=== PATIENT | male | born 1980 | race Caucasian/White ===

== ENCOUNTER 2020-02-17 21:13 | Emergency (ER) | payer MEDICAID ==
[~2020-02-17] VITALS: Ht 172.7 cm; Wt 100.7 kg
[2020-02-17 21:47] VITALS: BP 135/90
--- NOTE | 2020-02-17 22:14 | NUR ---
PT FELL OUT OF A TREE 2 DAYS AGO AND LANDED ON HIS LEFT WRIST. POSSIBLE FRACTURE TO SIDE OF HAND. SWELLING NOTED, UNABLE TO MOVE LITTLE FINGER AND RING FINGER. PALPABLE RADIAL PULSE. PT STATES HE HEARD A CRACK AT THE TIME IT HAPPENED AND IT MAKING A POPPING SOUND NOW WHEN HE MOVES IT. SKIN WARM AND DRY, CAP REFILL LESS THAN 3 SECS. PT PLACED IN BED, BED IN LOWEST POSITION AND SIDERAIL UP X 1. NKA HX - HIV
--- NOTE | 2020-02-17 22:16 | NUR ---
X-RAY AT BEDSIDE
[2020-02-17] MEDS ORDERED: HYDROcodone/APAP 5/325 MG 1 TAB TAB PO ONE (23:10)
--- NOTE | 2020-02-17 23:21 | NUR ---
CROWN [employer]ONER OPERATOR AT BEDSIDE, PLACED PT'S FRACTURED HAND IN FINGER TRAP FOR REALIGNMENT OF FRACTURED BONES. MD ROSE AT BEDSIDE WELL.
--- NOTE | 2020-02-17 23:34 | NUR ---
SPLINT BEING PLACED TO LEFT HAND BY [facility] EMT
--- NOTE | 2020-02-17 23:38 | NUR ---
pts left arm was placed in a ulnar guter splint. pts pms[facility] wnl. pts left arm was also placed in a sling.
--- NOTE | 2020-02-17 23:49 | NUR ---
AWAITING POST REDUCTION X-RAY, MD ROSE AT BEDSIDE AT THIS TIME
--- NOTE | 2020-02-18 00:03 | NUR ---
X-RAY AT BEDSIDE
[2020-02-18 00:16] VITALS: BP 132/87
== END 2020-02-18 00:17 | disposition home or self-care (01) ==
LOC: MED 21:13
DX: S62.307A Unspecified fracture of fifth metacarpal bone, left hand, initial encounter for closed fracture (principal); W19.XXXA Unspecified fall, initial encounter; Y93.89 Activity, other specified; Y92.89 Other specified places as the place of occurrence of the external cause; Y99.8 Other external cause status
CPT/HCPCS: 73110; 73130; 99284; 99285

== ENCOUNTER 2020-05-26 23:26 | Emergency (ER) | payer MEDICAID ==
[~2020-05-26] VITALS: Ht 172.7 cm; Wt 100.5 kg
[2020-05-27 00:05] VITALS: BP 135/90
[2020-05-27 00:41] VITALS: BP 135/90
[2020-05-27] MEDS ORDERED: VANCOMYCIN 1,000 MG in DEXTROSE 5% 250 ML IV ONE (01:25)
== END 2020-05-27 00:06 | disposition left against medical advice (07) ==
LOC: MED 23:26
DX: L03.115 Cellulitis of right lower limb (principal); F17.210 Nicotine dependence, cigarettes, uncomplicated; F12.10 Cannabis abuse, uncomplicated; Z88.8 Allergy status to other drugs, medicaments and biological substances; Z91.013 Allergy to seafood
CPT/HCPCS: 99282; 99283

== ENCOUNTER 2021-07-09 04:57 | Emergency (ER) | payer MEDICAID ==
[~2021-07-09] VITALS: Ht 172.7 cm; Wt 99.8 kg
[2021-07-09 05:01] VITALS: BP 145/102
[2021-07-09] MEDS ORDERED: NAPR-54 PO (05:44)
[2021-07-09 05:46] VITALS: BP 145/102
== END 2021-07-09 05:46 | disposition home or self-care (01) ==
LOC: MED 04:57
DX: S83.91XA Sprain of unspecified site of right knee, initial encounter (principal); S93.401A Sprain of unspecified ligament of right ankle, initial encounter; J45.909 Unspecified asthma, uncomplicated; Z91.013 Allergy to seafood; Z88.8 Allergy status to other drugs, medicaments and biological substances; Z79.899 Other long term (current) drug therapy; V89.2XXA Person injured in unspecified motor-vehicle accident, traffic, initial encounter; Y93.89 Activity, other specified; Y92.89 Other specified places as the place of occurrence of the external cause; Y99.8 Other external cause status
CPT/HCPCS: 73560; 73600; 99284; Q0092

== ENCOUNTER 2022-05-19 16:04 | Emergency (ER) | payer MEDICAID ==
[~2022-05-19] VITALS: Ht 172.7 cm; Wt 97.1 kg
[~2022-05-19 16:04] MED LIST: NAPR-54 PO
[2022-05-19 16:09] VITALS: BP 141/70
[2022-05-19] MEDS ORDERED: LIDOCAINE MPF 1% 10 MG/ML VIAL INJ ONE (16:55)
[2022-05-19] MEDS ORDERED: BACITRACIN OINT 500 UNITS/GM PKT TP ONE (17:00)
--- NOTE | 2022-05-19 17:07 | NUR ---
PT AMBULATED TO ER BED 5
--- NOTE | 2022-05-19 17:14 | NUR ---
41YO MALE PT C/O R FOREARM LAC AND THROBBING PAIN XTODAY. REPORTS ACCIDENTLY HITTING ARM AGAINST BROKEN GLASS WHILE CLEANING BACKYARD . MULTIPLE LACS NOTED W/ MILD ACTIVE BLEEDING. -LOSS OF SENSATION OR NUMBING. DENIES TAKING MEDICATION. PT AAOX4, ARM POSITIONED PER COMFORT. HX: HIV+ ALLERGIES: IODINE
--- NOTE | 2022-05-19 17:39 | NUR ---
wound to r anterior forearm irrigated with betadine and normal saline
--- NOTE | 2022-05-19 18:00 | NUR ---
Nguyen riggins in ED - 05/19/22 at 1803 by [email or web address] ATTEMPTED TO D/C PATIENT, NOT FOUND IN LOBBY/OUTSIDE. PT LEFT WITHOUT D/C PAPERS
--- NOTE | 2022-05-19 18:15 | NUR ---
r forearm wound bandaged with non adherent x 2
--- NOTE | 2022-05-19 18:32 | NUR ---
Patient discharged with v/s stable. Written and verbal after care instructions FOR [facility] given and explained. Patient verbalized understanding. Ambulatory with steady gait. All questions addressed prior to discharge. Advised to follow up with PMD.
--- NOTE | 2022-05-19 18:33 | NUR ---
The patient's care was reviewed and supervised by Melyssa Cordova RN.
== END 2022-05-19 18:32 | disposition home or self-care (01) ==
LOC: MED 16:04
DX: S51.821A Laceration with foreign body of right forearm, initial encounter (principal); J45.909 Unspecified asthma, uncomplicated; Z91.040 Latex allergy status; Z91.013 Allergy to seafood; W18.30XA Fall on same level, unspecified, initial encounter; Y93.89 Activity, other specified; Y92.89 Other specified places as the place of occurrence of the external cause; Y99.8 Other external cause status
CPT/HCPCS: 12001; 99282; J2001

== ENCOUNTER 2023-02-27 01:40 | Emergency (ER) | payer MEDICAID ==
[~2023-02-27] VITALS: Ht 172.7 cm; Wt 95.3 kg
[2023-02-27 01:48] VITALS: BP 122/57; PULSE 90; RESP 13; TEMP 97.4; O2SAT 96
[2023-02-27] MEDS ORDERED: CEPH-588 PO (01:55)
[2023-02-27] MEDS ORDERED: ceFAZolin 1,000 MG VIAL IM ONE (01:55)
[2023-02-27 02:40] VITALS: BP 122/57; PULSE 90; RESP 13; TEMP 97.4; O2SAT 96
== END 2023-02-27 02:40 | disposition home or self-care (01) ==
LOC: MED 01:40
DX: L03.114 Cellulitis of left upper limb (principal); L03.113 Cellulitis of right upper limb; Z79.899 Other long term (current) drug therapy; Z91.040 Latex allergy status
CPT/HCPCS: 96372; 99283; J0690

== ENCOUNTER 2023-03-28 01:05 | Emergency (ER) | payer MEDICAID ==
[~2023-03-28] VITALS: Ht 172.7 cm; Wt 104.3 kg
[~2023-03-28 01:05] MED LIST changes: +CEPH-588 PO
[2023-03-28 01:10] VITALS: BP 121/79; PULSE 101; RESP 22; TEMP 99.1; O2SAT 98
[2023-03-28] MEDS ORDERED: ALBUTEROL SULFATE/IPRATROPIU 3 ML SOL IH ONE (02:05)
[2023-03-28] MEDS ORDERED: predniSONE 20 MG TAB PO ONE (02:05)
[2023-03-28 02:12] VITALS: PULSE 101; RESP 17; O2SAT 94
[2023-03-28 02:59] VITALS: TEMP 99.1
[2023-03-28] MEDS ORDERED: PRED20TA5 PO (03:35)
[2023-03-28] MEDS ORDERED: ALBU0.0912 INH (03:35)
[2023-03-28] MEDS ORDERED: AZIT250T4 PO (03:35)
[2023-03-28 03:55] VITALS: BP 130/80; PULSE 100; RESP 18; O2SAT 94
== END 2023-03-28 03:55 | disposition home or self-care (01) ==
LOC: MED 01:05
DX: J45.901 Unspecified asthma with (acute) exacerbation (principal); Z79.899 Other long term (current) drug therapy
CPT/HCPCS: 71045; 93005; 94640; 99283; J7512; Q0092

== ENCOUNTER 2023-05-04 02:02 | Inpatient (IN) | payer MEDICAID, OTHER ==
[2023-05-04] VITALS (12 sets, daily range): BP systolic 95–139; BP diastolic 52–91; PULSE 80–102; RESP 16–24; TEMP 96.5–98.4; O2SAT 85–100
[~2023-05-04] VITALS: Ht 170.2 cm; Wt 81.6 kg
[~2023-05-04 02:02] MED LIST changes: +ALBU0.0912 INH; +AZIT250T4 PO; +PRED20TA5 PO
[2023-05-04] MEDS ORDERED: HALOPERIDOL IM 5 MG/ML VIAL ONE (02:24)
[2023-05-04 02:25] LABS: BASOPHILS # (AUTO) 0.2 K/uL (0.00-0.22); BASOPHILS % (AUTO) 1.1 % (0.0-2.0); EOSINOPHILS # (AUTO) 0.3 K/uL (0-0.4); EOSINOPHILS % (AUTO) 1.7 % (0.0-4.0); HEMATOCRIT 46.6 % (36-52); HEMOGLOBIN 15.4 g/dL (12.0-18.0); LYMPHOCYTES # (AUTO) 3.9 K/uL (2.0-11.5); LYMPHOCYTES % (AUTO) 25.9 % (20.5-51.1); MEAN CORPUSCULAR HEMOGLOBIN 29 pg (27-31); MEAN CORPUSCULAR HGB CONC 33 g/dL (33-37); MEAN CORPUSCULAR VOLUME 86.9 fL (80-94); MONOCYTES # (AUTO) 0.3 K/uL (0.8-1.0); MONOCYTES % (AUTO) 1.8 % (1.7-9.3); NEUTROPHILS # (AUTO) 10.5 K/uL (1.8-7.7); NEUTROPHILS % (AUTO) 69.5 % (42.2-75.2); PLATELET COUNT (AUTO) 260 K/uL (140-450); RED BLOOD CELL COUNT(AUTO) 5.37 MIL/uL (4.20-6.10); RED CELL DISTRIBUTION WIDTH 14.4 % (11.6-13.7); WHITE BLOOD COUNT (AUTO) 15.1 K/uL (4.8-10.8)
[2023-05-04] MEDS: HALOPERIDOL IM 5 MG/ML VIAL IM ONE (02:51)
[2023-05-04] MEDS: LORazepam 2 MG/ML VIAL IVP ONE (02:52)
[2023-05-04 02:55] LABS: ALANINE AMINOTRANSFERASE 181 U/L (12-78); ALBUMIN 3.1 g/dL (3.4-5.0); ALCOHOL, BLOOD < 3 mg/dL (<10); ALKALINE PHOSPHATASE 138 U/L (50-136); CALCIUM 8.5 mg/dL (8.5-10.1); CARBON DIOXIDE 22.1 mmol/L (21-32); CHLORIDE 103 mmol/L (98-107); CREATININE 2.5 mg/dL (0.6-1.3); GFR ARICAN-AMERICAN 37 mL/min (>90); GFR NON ARICAN-AMERICAN 30 mL/min (>90); GLUCOSE 301 mg/dL (74-106); TOTAL BILIRUBIN 0.3 mg/dL (0.0-1.0); TOTAL PROTEIN, SERUM 8.9 g/dL (6.4-8.2); UREA NITROGEN, BLOOD 24 mg/dL (7-18)
[2023-05-04 03:07] LABS: BLOOD GAS BASE EXCESS -11.6 mmol/L (-2.0-2.0); BLOOD GAS HCO3 18.3 mmol/L (22-26); BLOOD GAS PCO2 57.2 mmHg (35-45); BLOOD GAS PH 7.124 (7.35-7.45); BLOOD GAS PO2 67.3 mmHg (75-100)
[2023-05-04] MEDS: diphenhydrAMINE 50 MG/ML VIAL IVP ONE (03:16)
[2023-05-04 03:18] LABS: ANION GAP 19.8 (8-16); ASPARTATE AMINOTRANSFERASE 179 U/L (15-37); POTASSIUM 4.9 mmol/L (3.5-5.1); SODIUM SERUM 140 mmol/L (136-145)
[2023-05-04 03:19] LABS: ACETAMINOPHEN < 0.5 ug/ml (10-30); SALICYLATE < 2.8 mg/dL (2.8-20.0)
[2023-05-04 03:21] LABS: AMPHETAMINE, URINE POSITIVE ng/ml (NEG <=1000); BARBITURATE, URINE NEGATIVE ng/ml (NEG <=200); BENZODIAZEPINE, URINE NEGATIVE ng/mL (NEG <=200); CANNABINOID, URINE NEGATIVE ng/mL (NEG <=50); COCAINE, URINE NEGATIVE ng/mL (NEG <=300); OPIATE, URINE NEGATIVE ng/mL (NEG <=2000); PHENCYCLIDINE SCREEN,URINE NEGATIVE ng/mL (NEG <=25)
[2023-05-04] MEDS ORDERED: cefTRIAXone 1,000 MG VIAL ONE (03:59)
[2023-05-04] MEDS ORDERED: POTASSIUM CHLORIDE 10 MEQ TABER PO PRN (04:35)
[2023-05-04] MEDS ORDERED: ALBUTEROL SULFATE/IPRATROPIU 3 ML SOL IH PRN (04:35)
[2023-05-04] MEDS ORDERED: HYDROcodone/APAP 7.5/325 MG 1 TAB PO PRN (04:35)
[2023-05-04] MEDS ORDERED: DOCUSATE SODIUM 100 MG GELCAP PO PRN (04:35)
[2023-05-04] MEDS ORDERED: ONDANSETRON 4 MG/2 ML VIAL IM/IVP PRN (04:35)
[2023-05-04] MEDS ORDERED: ACETAMINOPHEN 325 MG TAB PO PRN (04:35)
[2023-05-04] MEDS ORDERED: ZOLPIDEM 5 MG TAB PO PRN (04:35)
[2023-05-04] MEDS ORDERED: guaiFENesin DM 200/20 MG-10 ML 10 ML UDC PO PRN (04:35)
[2023-05-04] MEDS ORDERED: PIPERACILLIN/TAZOBACTAM 3.375 GM VIAL IV ONE (05:22)
[2023-05-04] MEDS: NACL 0.9% 1,000 ML IV SCH (05:27)
[2023-05-04] MEDS: PIPERACILLIN/TAZOBACTAM 3.375 GM in DEXTROSE 5% 50 ML IV SCH (05:29)
[2023-05-04] MEDS: ALBUTEROL SULFATE/IPRATROPIU 3 ML SOL IH SCH (07:44)
[2023-05-04] MEDS: PANTOPRAZOLE 40 MG TABEC PO SCH (09:00)
[2023-05-04 20:35] LABS: ANION GAP 10.7 (8-16); CALCIUM 7.4 mg/dL (8.5-10.1); CARBON DIOXIDE 25.4 mmol/L (21-32); CREATININE 1.8 mg/dL (0.6-1.3); POTASSIUM 4.1 mmol/L (3.5-5.1)
[2023-05-05] VITALS (9 sets, daily range): BP systolic 105–136; BP diastolic 63–88; PULSE 83–102; RESP 16–20; TEMP 97.6–99; O2SAT 93–99
[2023-05-05 05:43] LABS: BASOPHILS % (AUTO) 0.5 % (0.0-2.0); EOSINOPHILS # (AUTO) 0.1 K/uL (0-0.4); EOSINOPHILS % (AUTO) 1.6 % (0.0-4.0); HEMATOCRIT 38.5 % (36-52); HEMOGLOBIN 13.4 g/dL (12.0-18.0); LYMPHOCYTES # (AUTO) 1.4 K/uL (2.0-11.5); MEAN CORPUSCULAR HEMOGLOBIN 29 pg (27-31); MEAN CORPUSCULAR HGB CONC 35 g/dL (33-37); MEAN CORPUSCULAR VOLUME 84.8 fL (80-94); MONOCYTES # (AUTO) 0.5 K/uL (0.8-1.0); MONOCYTES % (AUTO) 5.6 % (1.7-9.3); NEUTROPHILS # (AUTO) 6.6 K/uL (1.8-7.7); NEUTROPHILS % (AUTO) 76.3 % (42.2-75.2); PLATELET COUNT (AUTO) 173 K/uL (140-450); RED BLOOD CELL COUNT(AUTO) 4.54 MIL/uL (4.20-6.10); RED CELL DISTRIBUTION WIDTH 13.9 % (11.6-13.7); WHITE BLOOD COUNT (AUTO) 8.6 K/uL (4.8-10.8)
[2023-05-05 05:48] LABS: ALBUMIN 2.4 g/dL (3.4-5.0); ANION GAP 8.1 (8-16); CALCIUM 7.9 mg/dL (8.5-10.1); CARBON DIOXIDE 28.6 mmol/L (21-32); CREATININE 1.5 mg/dL (0.6-1.3); POTASSIUM 3.7 mmol/L (3.5-5.1); TOTAL BILIRUBIN 0.8 mg/dL (0.0-1.0); TOTAL PROTEIN, SERUM 7.1 g/dL (6.4-8.2)
[2023-05-06] VITALS: BP 122/79; PULSE 103; PULSE 92; RESP 18; TEMP 98.3; O2SAT 97
[2023-05-06 04:00] VITALS: BP 121/82; PULSE 93; PULSE 98; RESP 18; TEMP 98.9; O2SAT 95
[2023-05-06 05:07] LABS: BASOPHILS # (AUTO) 0.1 K/uL (0.00-0.22); BASOPHILS % (AUTO) 0.8 % (0.0-2.0); EOSINOPHILS # (AUTO) 0.2 K/uL (0-0.4); EOSINOPHILS % (AUTO) 2.3 % (0.0-4.0); HEMATOCRIT 40.3 % (36-52); HEMOGLOBIN 13.7 g/dL (12.0-18.0); LYMPHOCYTES # (AUTO) 1.4 K/uL (2.0-11.5); LYMPHOCYTES % (AUTO) 16.9 % (20.5-51.1); MEAN CORPUSCULAR HEMOGLOBIN 28 pg (27-31); MEAN CORPUSCULAR HGB CONC 34 g/dL (33-37); MEAN CORPUSCULAR VOLUME 82.1 fL (80-94); MONOCYTES # (AUTO) 0.5 K/uL (0.8-1.0); MONOCYTES % (AUTO) 6.4 % (1.7-9.3); NEUTROPHILS # (AUTO) 6.2 K/uL (1.8-7.7); NEUTROPHILS % (AUTO) 73.6 % (42.2-75.2); PLATELET COUNT (AUTO) 187 K/uL (140-450); WHITE BLOOD COUNT (AUTO) 8.4 K/uL (4.8-10.8)
[2023-05-06 05:54] LABS: ALBUMIN 2.2 g/dL (3.4-5.0); ANION GAP 8.9 (8-16); CARBON DIOXIDE 26.9 mmol/L (21-32); CREATININE 1.1 mg/dL (0.6-1.3); POTASSIUM 3.8 mmol/L (3.5-5.1); TOTAL BILIRUBIN 0.6 mg/dL (0.0-1.0); TOTAL PROTEIN, SERUM 7.3 g/dL (6.4-8.2)
[2023-05-06 07:36] VITALS: O2SAT 96
[2023-05-06 08:24] VITALS: PULSE 92; RESP 16; O2SAT 95
[2023-05-06 13:50] VITALS: PULSE 93; RESP 14; O2SAT 95
[2023-05-06] MEDS ORDERED: AMOX-999 PO (15:22)
[2023-05-06 15:27] VITALS: BP 121/82; PULSE 93; RESP 14; TEMP 98.9
== END 2023-05-06 15:50 | disposition home or self-care (01) | DRG 720 ==
LOC: MED 02:02 → MTU 04:34
PROVIDERS: ADMIT Student in an Organized Health Care Education/Training Program; ATTEND Student in an Organized Health Care Education/Training Program
DX: A41.9 Sepsis, unspecified organism (principal); J96.01 Acute respiratory failure with hypoxia; J69.0 Pneumonitis due to inhalation of food and vomit; N17.0 Acute kidney failure with tubular necrosis; G92.8 Other toxic encephalopathy; T43.651A Poisoning by methamphetamines accidental (unintentional), initial encounter; F15.19 Other stimulant abuse with unspecified stimulant-induced disorder; Z91.041 Radiographic dye allergy status; Z91.013 Allergy to seafood; Z79.51 Long term (current) use of inhaled steroids; Z79.899 Other long term (current) drug therapy
CPT/HCPCS: 36415; 36600; 71045; 76770; 80048; 80053; 80305; 82553; 82803; 84100; 85025; 87040; 87081; 93005; 94640; 96365; 96372; 96375; 99285; G0480; G0482; J0696; J1200; J1630; J2060; J2543; J7060; Q0092